=== PATIENT | female | born 1960 | race Caucasian/White ===

== ENCOUNTER 2019-05-15 05:43 | Emergency (ER) | payer MEDICARE, MEDICAID ==
[~2019-05-15] VITALS: Ht 152.4 cm; Wt 75.0 kg
--- NOTE | 2019-05-15 05:53 | NUR ---
PT IN GOWN AND ON MONITORAWAITING ERP AND ORDERS.
[2019-05-15] MEDS ORDERED: FAMOTIDINE 20 MG/2 ML IV ONE (06:00)
[2019-05-15] MEDS ORDERED: PLEASE ENTER ALLERGIES MC SCH (06:00)
[2019-05-15] MEDS ORDERED: MAALOX/HYOSCYAMINE/LIDOCAINE 45 ML BTL PO ONE (06:00)
[2019-05-15] MEDS ORDERED: ONDANSETRON 2MG/ML, 2ML IVPush ONE (06:00)
[2019-05-15] MEDS ORDERED: FAMOTIDINE 20 MG/2 ML ONE (06:09)
[2019-05-15] MEDS ORDERED: MAALOX/HYOSCYAMINE/LIDOCAINE 45 ML BTL ONE (06:09)
[2019-05-15] MEDS ORDERED: ONDANSETRON 2MG/ML, 2ML ONE (06:09)
--- NOTE | 2019-05-15 06:15 | NUR ---
PT MEDICATED as ordered and blood to lab.
[2019-05-15 06:26] LABS: BASOPHILS # (AUTO) 0.06 x10^3/uL (0-0.1); BASOPHILS % (AUTO) 0 % (0-1); EOSINOPHILS # (AUTO) 0.27 x10^3/uL (0-0.4); EOSINOPHILS % (AUTO) 2 % (1-7); LYMPHOCYTES % (AUTO) 18 % (22-44); MD NO; MEAN CORPUSCULAR HEMOGLOBIN 34.1 pg (27.0-34.8); MEAN CORPUSCULAR HGB CONC 32.7 g/dL (32.4-35.8); MEAN CORPUSCULAR VOLUME 104.4 fL (80-100); MEAN PLATELET VOLUME 9.4 fL (7.4-10.4); MONOCYTES # (AUTO) 0.38 x10^3/uL (0.2-0.8); MONOCYTES % (AUTO) 3 % (2-9); NEUTROPHILS # (AUTO) 9.93 x10^3/uL (1.8-6.8); NEUTROPHILS % (AUTO) 76 % (42-75); PLATELET COUNT 246 x10^3/uL (130-400); RED CELL DISTRIBUTION WIDTH 14.4 % (9.6-15.2)
[2019-05-15] MEDS ORDERED: MORPHINE SULFATE 4 MG/ML, 1ML ONE (06:32)
[2019-05-15 06:37] LABS: ALANINE AMINOTRANSFERASE 19 U/L (12-78); ALBUMIN 4.2 g/dL (3.4-5.0); ANION GAP 14 mmol/L (5-15); CALCIUM 9.5 mg/dL (8.5-10.1); CHLORIDE 107 mmol/L (98-107); CREATININE 1.02 mg/dL (0.55-1.02)
[2019-05-15 06:41] LABS: ALKALINE PHOSPHATASE 100 U/L (45-117); BILIRUBIN,TOTAL 0.5 mg/dL (0.2-1.0); TROPONIN I < 0.015 ng/mL (0.000-0.045)
[2019-05-15] MEDS ORDERED: MORPHINE SULFATE 4 MG/ML, 1ML IVPush PRN (07:00)
--- NOTE | 2019-05-15 07:05 | NUR ---
Received report from Lokesh De La Cruz RN. All questions answered. Assuming care of pt. US at bedside. 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 Call light within reach. NADN. No needs expressed.
[2019-05-15 07:42] VITALS: BP 149/86
--- NOTE | 2019-05-15 07:44 | NUR ---
Pt unable to provide home medication list. Pt states, "I don't know them all."
--- NOTE | 2019-05-15 07:47 | NUR ---
Patient given discharge instructions and they have confirmed that they understand the instructions. Patient ambulatory with steady gait. Pt left with d/c paperwork and all personal belongings. NADN. No needs expressed.
== END 2019-05-15 07:51 | disposition home or self-care (01) ==
LOC: ED 06:24
DX: K21.0 Gastro-esophageal reflux disease with esophagitis (principal); I10 Essential (primary) hypertension
CPT/HCPCS: 36415; 76700; 80053; 83690; 84484; 85025; 93005; 96374; 96375; 99284; J2270; J2405; J3490